=== PATIENT | female | born 1935 | race African-American/Black ===

== ENCOUNTER 2019-06-13 19:46 | Inpatient (IN) | payer MEDICARE, MEDICAID ==
[2019-06-13] MEDS ORDERED: Acetaminophen 325 MG TAB ONE (20:12)
[2019-06-13 20:53] LABS: Troponin I 0.169 ng/mL (< 0.028)
--- NOTE | 2019-06-13 21:06 | PDOC.FPRHP ---
- History of Present Illness Chief Complaint: Fever, Cough History of Present Illness: Patient is a 84 yo female who presents to [facility] as a transfer from [facility]. Originally patient had been transferred to [place] from [facility] after it was noted she had a temp of 103.7F accompanied by non- productive cough and tachypnea. She also had AMS, she is normally conversational at baseline. Upon arrival to [place] ED she had O2 sat of 84% on room air and was placed on supplemental O2. Currently she is requiring 4L O2 with 100% O2 sat. Patient was previously taken to the [place] ED on 06/04/19 with similar symptoms. Patient was seen earlier this week by family members but they did not note the patient to have any symptoms or complaints. [facility] ED Course: Given Rocephin x 1 dose, Vancomycin 15mg/kg x 1 dose, 250 NS bolus, Lasix 20 x 1 dose, Tylenol. Her BP have ranged from systolic 80s to low 100s, diastolic 60s , MAP from 55 to 75. - Allergies/Adverse Reactions Allergies Allergy/AdvReac Type Severity Reaction Status Date / Time No Known Allergies Allergy Verified 06/14/19 03:08 - History PMHx: Advanced dementia, HTN, HLD, GERD, CAD, CKD PSHx: unknown FHx: mother had heart disease, sister & daughter hx of breast cancer Social: smoking hx from age 15 to 80 (unknown amount), no EtOH use - Review of Systems ROS unobtainable: other (per daughter and [facility] records) General: reports: fever/chills ENT: reports: nasal congestion Respiratory: reports: cough, shortness of breath. denies: congestion Gastrointestinal: denies: vomiting, diarrhea Skin: denies: rashes, lesions - Vital signs BP: 98/66 HR: 79 RR: 18 Tmax: 99.8F Pox: 100% on 4L O2 Wt: 68 kg - Physical Exam Constitutional: NAD, well developed -Constitutional: sleeping, easily awakened and oriented to person only HEENT: normocephalic and atraumatic, conjunctiva clear, no scleral icterus, MMM Neck: supple, no JVD Heart: RRR, normal S1/S2, no murmurs/rubs/gallops, pulses present, other (1+ nonpitting bilat LE edema) -Lungs: scattered rhonchi throughout anterior and posterior areas. Abdomen: soft, bowel sounds present, no masses/distention Musculoskeletal: normal structure, normal tone Skin: no rash/lesions, good turgor, no jaundice Heme/Lymphatic: no unusual bruising or bleeding FMR H&P: Results - Labs Result Diagrams: 06/14/19 02:09 06/14/19 02:09 Lab results: B-Natriuretic Peptide 857.5 pg/mL (0-100) H 06/13/19 20:10 - EKG Interpretation EKG: sinus rhythm, no ST changes FMR H&P: A/P - Problem List (1) Sepsis Current Visit: Yes Status: Acute Code(s): A41.9 - SEPSIS, UNSPECIFIED ORGANISM Qualifiers: Sepsis type: sepsis due to unspecified organism Severe sepsis acute organ dysfunction type: acute respiratory failure Acute respiratory failure type: with hypoxia Severe sepsis shock status: unspecified (2) Acute respiratory failure with hypoxia Current Visit: Yes Status: Acute Code(s): J96.01 - ACUTE RESPIRATORY FAILURE WITH HYPOXIA (3) CHF with unknown LVEF Current Visit: Yes Status: Acute Code(s): I50.9 - HEART FAILURE, UNSPECIFIED (4) AMADOU (acute kidney injury) Current Visit: Yes Status: Acute Code(s): N17.9 - ACUTE KIDNEY FAILURE, UNSPECIFIED - Plan Patient is a 84 yo female with fever and tachypnea who is admitted for sepsis workup, CHF exacerbation, and acute hypoxic respiratory failure: #Sepsis, likely secondary to aspiration pna -Rocephin x 1 in ED (06/13), start Vancomycin (06/13) & Zosyn (06/13) -repeat CXR in AM -blood and urine cultures pending (taken at [place] ED) -monitor vitals q4hr, MAP has ranged from 55-75 while in ED, consider central line if MAP sustained below 60 #Acute Hypoxic Respiratory Failure -Duonebs shukri q4hr, prn q2hr #Suspected CHF exacerbation -Echo in AM -Lasix 20 x 1 dose at [place] ED, consider starting Lasix here as clinical condition warrants -BNP 652 -> 857 (baseline unknown) -Troponins 0.071 -> 0.169 -monitor I/Os -balance fluid resuscitation vs overload-has received 250 IV NS so far #AMADOU, mild -Cr 1.21, baseline Cr unknown -CrCl = 37 #Leukocytosis -WBC 11.1 -CBC in AM #HTN -hold home BP meds: Valsartan, Amlodipine, HCTZ, Atenolol #Depression -continue home Citalopram #Dementia -continue home Donepezil Diet: Heart Healthy, low sodium VTE: SCDs, Lovenox 30 Code: DNR only, intubation okay Dispo: Guarded, admitted to inpatient IMCU. Plan to continue IV Abx and await culture results. Repeat CXR planned for AM. Anticipate LOS >2 days. FMR H&P: Upper Level - Pertinent history 84 year old AA female presents from [facility] with a one to two day history of fever and chest congestion. She was seen at [place] ED, diagnosed with PNA and transferred to [facility]. Patient had temp to 103.7F in outside ED. CXR consistent with pulmonary edema. Patient was given lasix 20 mg at outside facility. BP in route fell to SBP 80's. She was given 250 mL of NS which improved BP. Her BP's have been low, but stable since arrival. MAPs have been maintained above 60. Patient unable to provide a lot of history due to advanced dementia, but she reports feeling better. Family saw her a few days prior and reports she was doing well. She is conversational at baseline. She reportedly has no difficulties with eating and is on a regular diet with no restrictions. Patient has not had PNA previously. Uncertain whether she is up to date with vaccines. - Pertinent findings General: Alert. Resting comfortably in bed. Awakens to answer questions. No acute distress. HEENT: EOMI. MMM. Card: RRR, No appreciable murmur. Resp: Rhonchi throughout anteriorly and posteriorly. No acute respiratory distress. Abdomen: Soft, non-tender. Ext: Trace lower extremity edema. No cyanosis Skin: Warm and dry. - Plan Date/Time: 06/13/192105 IGisell, have evaluated this patient and agree with findings/plan as outlined by recruitment intern resident. Pertinent changes/additions are listed here. Acute hypoxic respiratory failure 2/2 PNA and CHF exacerbation - Requiring 4L O2 - Consider ABG, patient has been on 4L O2 - Broad spectrum antibiotics to include Vanc (06/13) and Zosyn (06/13); possibility of aspiration - Duonebs SHUKRI q4h and PRN q2h Sepsis 2/2 PNA - CXR concerning for pulmonary edema, will repeat in AM - Broad spectrum antibiotics; Vanc and Zosyn. Possibility of aspiration. - Duoneb treatments as above - BP with MAP's above 65, although dipping down at times below 65. Had extensive discussion with family regarding possibility of central line for pressors if needed. Patient is DNR, but not DNI. They are in agreement with central line if necessary. At this time, patient has not been adequately fluid resuscitated. Given concern for pulmonary edema, will have to balance fluid resuscitation with fluid overload. Discussed this with family. - Continue to monitor respiratory status and wean O2 as tolerated with goal O2 > 92%. - Blood and urine cultures pending - Consider cortisol level if BP does not respond to fluids Pulmonary edema with concern for CHF exacerbation - BNP 600's --> 800's after very mild fluid resuscitation - Balance adequate fluid resuscitation for sepsis with fluid overload from possible CHF - Echo pending - No formal diagnosis of CHF in patient's history - Lasix 20 mg given at outside facility; will give PRN as needed - Daily weights - Strict I&O's Indeterminate troponins, likely 2/2 NSTEMI type II (demand ischemia) - Likely demand 2/2 PNA/CHF - Continue to trend HTN - Hold home BP meds HLD - Continue home meds GERD - Aware CAD - Continue home medications CKD - Uncertain of baseline - Cr 1.2 today, continue to monitor Advanced Dementia - Continue home medications - A&O x1 at baseline DVT PPX: Lovenox Code Status: DNR (not DNI, ok with intubation) Dispo: Admit to IMCU. Anticipate LOS >48 hours. Addendum - Attending - Attending Attestation Date/Time: 06/14/19 0560 I personally evaluated the patient and discussed the management with Dr. Rojas. I agree with the History, Examination, Assessment and Plan documented above with any addition or exceptions noted below. Pt was sent to the ER for temp 103 and cough from [place] in [place]. She has been mildly hypotensive. CXR consistent with pneumonia and bnp also elevated. She appears to also have a chf exac. Will get echo. We have to balance her need for fluids for sepsis and her need for diuresis for the chf. She has gotten small fluid boluses and also some lasix. Will admit to the IMCU for close monitoring. Treat with broad spectrum antibiotics. Culture pt.
[2019-06-14] MEDS ORDERED: Ondansetron PF 4 MG/2 ML Vial IVP PRN ×2 (00:01→00:36)
[2019-06-14] MEDS ORDERED: Ondansetron ODT 4 MG TAB SL PRN (00:01)
[2019-06-14 00:14] LABS: Troponin I 0.258 ng/mL (< 0.028)
[2019-06-14] MEDS ORDERED: Ondansetron ODT 4 MG TAB PO PRN (00:36)
[2019-06-14] MEDS ORDERED: Acetaminophen 650 MG Suppository PR PRN (00:36)
[2019-06-14] MEDS ORDERED: Calcium Carbonate 500 MG ChewTAB PO PRN (00:36)
[2019-06-14] MEDS ORDERED: Senokot S 8.6-50 MG TAB PO PRN (00:36)
[2019-06-14] MEDS ORDERED: cefTRIAXone\\ROCEPHIN 1 GM in Sodium Chloride 0.9% 100 ML IVPB SCH (01:00)
[2019-06-14] MEDS ORDERED: Piperacillin/Tazobactam 4.5 GM in Sodium Chloride 0.9% 100 ML IVPB SCH (02:00)
[2019-06-14 02:17] LABS: #Lymphocytes 0.9 thou/uL (1.20-3.40); #Monocytes 0.8 thou/uL (0.11-0.59); #Neutrophils 6.1 thou/uL (1.40-6.50); %Basophils 0.5 % (0.0-1.0); %Eosinophils 0.5 % (0.0-10.0); %Lymphocytes 11.1 % (21.0-51.0); %Monocytes 10.6 % (0.0-10.0); %Neutrophils 77.3 % (42.0-75.0); Hemoglobin 10.6 g/dL (12.0-16.0); Mean Corpuscular HGB CONC 32.3 g/dL (32.0-36.0); Mean Corpuscular Hemoglobin 30.3 pg (27.0-31.0); Mean Corpuscular Volume 93.7 fL (78.0-98.0); Mean Platelet Volume 8.2 fL (7.4-10.4); Platelet Count 273 thou/uL (130-400); RBC Distribution Width 12.5 % (11.5-14.5); Red Blood Cell (RBC) Count 3.49 mill/uL (4.20-5.40); White Blood Cell (WBC) Count 7.9 thou/uL (4.8-10.8)
[2019-06-14] MEDS ORDERED: Milk Of Magnesia 30 ML UDCUP PO PRN (02:40)
[2019-06-14 02:41] LABS: Troponin I 0.233 ng/mL (< 0.028)
[2019-06-14 02:46] LABS: ALT (SGPT) 12 U/L (8-55); AST (SGOT) 17 U/L (5-34); Albumin 3.4 g/dL (3.4-4.8); Alkaline Phosphatase 68 U/L (40-110); Anion Gap 13 mmol/L (10-20); BUN (Urea Nitrogen) 19 mg/dL (9.8-20.1); Bilirubin, Total 0.5 mg/dL (0.2-1.2); Calc. Creatinine Clearance 0 mL/min (70-130); Calcium 8.5 mg/dL (7.8-10.44); Carbon Dioxide 26 mmol/L (23-31); Chloride 100 mmol/L (98-107); Estimated GFR-MDRD 51; Globulin 2.7 g/dL (2.4-3.5); Glucose 119 mg/dL (83-110); Potassium 3.8 mmol/L (3.5-5.1); Protein, Total 6.1 g/dL (6.0-8.3); Sodium 135 mmol/L (136-145)
[2019-06-14] MEDS ORDERED: hydrALAZINE 20 MG/ML VIAL SLOW IVP PRN (04:20)
[2019-06-14] MEDS ORDERED: Furosemide 20 MG/2 ML VIAL SLOW IVP SCH (04:30)
[2019-06-14 05:16] LABS: Ferritin 116.19 ng/mL (10-291)
[2019-06-14] MEDS: Acetaminophen 325 MG TAB PO PRN (05:32)
[2019-06-14] MEDS: Piperacillin/Tazobactam 3.375 GM in Sodium Chloride 0.9% 100 ML IVPB SCH ×4 (05:32→23:57)
--- NOTE | 2019-06-14 06:15 | PDOC.FM ---
- Subjective Subjective: No overnight events. Slept well. No complaints. Denies shortness of breath, chest pain, fevers/chills. - Objective MAR Reviewed: Yes Vital Signs & Weight: Vital Signs (12 hours) Temp Pulse Resp Pulse Ox 06/14/19 05:45 100.8 F H 06/14/19 03:51 98.1 F 06/14/19 02:18 74 14 100 06/14/19 00:20 98 06/14/19 00:02 99.2 F Weight Weight 61.3 kg Most Recent Monitor Data Heart Rate from ECG 79 NIBP 183/81 NIBP BP-Mean 115 Respiration from ECG 22 SpO2 93 I&O: 06/12/19 06/13/19 06/14/19 06:59 06:59 06:59 Intake Total 200 Balance 200 Result Diagrams: 06/14/19 02:09 06/14/19 02:09 Phys Exam - Physical Examination Constitutional: NAD HEENT: moist MMs Neck: supple crackles in Left lower lobe otherwise CTA Cardiovascular: RRR, no significant murmur Gastrointestinal: soft, non-tender, positive bowel sounds Musculoskeletal: no edema, pulses present Neurological: moves all 4 limbs Skin: normal turgor Dx/Plan - Plan Plan: 84 yo female admitted for sepsis 2/2 pneumonia and acute hypoxic respiratory failure 2/2 pna and likely CHF exacerbation Sepsis, likely 2/2 to aspiration pna - Fever, leukocytosis - Continue Vanc, Zosyn - Repeat CXR pending. - Blood and urine cultures pending - Hypotension improved wit volume resuscitation Acute Hypoxic Respiratory Failure likely 2/2 PNA and CHF exacerbation - Duonebs jonathon q4hr, prn q2hr - Manage as above Suspected CHF exacerbation - Elevated BNP - Echo today, no diagnosis of CHF - Continue Lasix 20mg daily - Troponins 0.071, 0.169, 0.258, 0.233 - Strict I&Os AMADOU - Cr 1.22, unknown basline - Continue to monitor Leukocytosis - Likely 2/2 infection HTN - Resume Valsartan, Atenolol - Holding HCTZ, Amlodipine Depression - continue home Citalopram Dementia - continue home Donepezil Diet: Heart Healthy, low sodium VTE: Lovenox 30 Code: DNR only, intubation okay Addendum - Attending - Attending Attestation Date/Time: 06/14/19 0719 I personally evaluated the patient and discussed the management with Dr. Gutierrez. I agree with the History, Examination, Assessment and Plan documented above with any addition or exceptions noted below. The patient's blood pressure is elevated this morning which is an improvement. Will restart one home bp agent and monitor. Continue antibiotics. Cultures pending.
[2019-06-14] MEDS ORDERED: Furosemide 20 MG TAB PO SCH (09:00)
[2019-06-14] MEDS ORDERED: Amlodipine 5 MG TAB PO SCH (09:00)
[2019-06-14] MEDS: Atenolol 50 MG TAB PO SCH (09:50)
[2019-06-14] MEDS: Valsartan 80 MG TAB PO SCH (09:50)
[2019-06-14] MEDS: Aspirin Chewable 81 MG TAB PO SCH (09:50)
[2019-06-14] MEDS: Citalopram 20 MG TAB PO SCH (09:52)
[2019-06-14] MEDS: Gabapentin 300 MG CAP PO SCH ×3 (09:52→20:54)
[2019-06-14] MEDS: Enoxaparin Sodium 30 MG/0.3 ML SYRINGE SC SCH (09:52)
--- NOTE | 2019-06-14 12:32 | RAD ---
PORTABLE AP CHEST: Date: 06/14/19 HISTORY: Fever, suspected aspiration pneumonia vs. CHF. COMPARISON: 06/13/19. FINDINGS: The cardiac silhouette is magnified by projection, but does appear mildly enlarged. Pulmonary vascula r congestion has improved. There has also been interval improvement in the interstitial densities not ed on the prior exam, as well as improvement in hazy bibasilar densities. Osteopenia is present. No o ther interval change. IMPRESSION: 1. Interval improvement in interstitial opacities and pulmonary vascular congestion. These findings may be related to interval improvement in CHF and pulmonary edema. 2. Osteopenia. POS: OFF
--- NOTE | 2019-06-14 18:09 | CON ---
DATE OF CONSULTATION: 06/14/2019 HISTORY OF PRESENT ILLNESS: Ms. Zamora is an 84-year-old female, who is admitted for fever, cough, and shortness of breath. Chest radiograph showed diffuse infiltrates. Repeat chest radiograph this morning shows dramatic improvement in these infiltrates. She says she feels much better. PAST MEDICAL HISTORY: Remarkable for, 1. Dementia. 2. Hypertension. 3. Reflux disease. 4. Coronary artery disease. 5. Chronic kidney disease. SOCIAL HISTORY: She is currently not smoking or drinking. She is a former smoker. FAMILY HISTORY: There is a family history of vascular disease and cancer. No history of lung disease in early age. ALLERGIES: SHE HAS NO REPORTED ALLERGIES. REVIEW OF SYSTEMS: Ten points negative. PHYSICAL EXAMINATION: VITAL SIGNS: Heart rate is 84, respiratory rate is 28, oximetry is 94, blood pressure 136/87. GENERAL: She is in no distress. She is lying in upright 15 degrees in bed. HEENT: Pupils are equal. Sclerae are anicteric. Her extraocular movements are full. NECK: Supple. No lymphadenopathy. LUNGS: Clear. HEART: Regular rhythm. No S3. No murmurs heard. ABDOMEN: Soft and nontender. EXTREMITIES: Without clubbing, cyanosis, or edema. NEURO: Nonfocal. LABORATORY DATA: White count is 7.9, hemoglobin 10.6, platelets 273. Sodium 135, potassium 3.8, chloride 100, bicarb 26, BUN 19, creatinine 1.22. IMPRESSION: 1. Congestive heart failure. 2. Febrile illness. Radiograph is not consistent with pneumonia. Flu swab was negative. Antibiotics can be simplified. I do not see any blood cultures that are pending. I doubt this is an MRSA infectious process. Given her advanced age, I consider stopping her vancomycin. An echocardiogram was ordered. We will follow. Job ID: [id number] [facility]
[2019-06-14] MEDS: Vancomycin HCl 1 GM in Premix Bag 1 BAG IVPB SCH (20:53)
[2019-06-14] MEDS: Donepezil HCl 5 MG TAB PO SCH (20:54)
--- NOTE | 2019-06-15 03:13 | PDOC.EVN ---
Event Note - Event Note Event Note: Patient seen at 0200. During chart review it was noted that at 2356 patient had fever of 103.1F. Patient has had fever above 100.4F throughout night. Has not received any Tylenol since 0530 on 06/14/19. Upon exam of patient she is sleeping with occasional cough. Has scattered rhonchi throughout anterior and posterior sites. Due to continued mixed picture of CHF exacerbation vs pneumonia , and due to persistent fevering despite broad antibiotic coverage will plan to redraw blood and urine cultures. Previous cultures drawn at outside ED are still pending.
[2019-06-15] MEDS: Piperacillin/Tazobactam 3.375 GM in Sodium Chloride 0.9% 100 ML IVPB SCH ×4 (05:40→23:56)
[2019-06-15 05:46] LABS: ALT (SGPT) 12 U/L (8-55); AST (SGOT) 19 U/L (5-34); Albumin 3.3 g/dL (3.4-4.8); Alkaline Phosphatase 55 U/L (40-110); Anion Gap 14 mmol/L (10-20); BUN (Urea Nitrogen) 22 mg/dL (9.8-20.1); Bilirubin, Total 0.7 mg/dL (0.2-1.2); Calc. Creatinine Clearance 29 mL/min (70-130); Calcium 8.3 mg/dL (7.8-10.44); Carbon Dioxide 28 mmol/L (23-31); Chloride 97 mmol/L (98-107); Estimated GFR-MDRD 44; Globulin 2.7 g/dL (2.4-3.5); Glucose 96 mg/dL (83-110); Potassium 3.5 mmol/L (3.5-5.1); Sodium 135 mmol/L (136-145)
--- NOTE | 2019-06-15 06:10 | PDOC.FM ---
- Subjective Subjective: Overnight, the patient fevered to a Tmax of 103F. Blood and urine cx were redrawn. Patient given a dose of tylenol which resolved fever. Per nursing, patient was wrapped up in multiple blankets at the time of the fever measurement. This morning, the patient is resting comfortably in bed. She denies any chest pain or discomfort. SHe denies any SOB. She denies any fever or chills. - Objective Vital Signs & Weight: Vital Signs (12 hours) Temp Resp Pulse Ox 06/15/19 05:00 20 06/15/19 03:42 98.6 F 06/15/19 01:21 100.2 F H 06/14/19 23:56 103.1 F H 06/14/19 20:00 22 H 99 06/14/19 19:26 100.2 F H Weight Weight 60.9 kg Most Recent Monitor Data Heart Rate from ECG 66 NIBP 129/61 NIBP BP-Mean 83 Respiration from ECG 15 SpO2 100 I&O: 06/13/19 06/14/19 06/15/19 06:59 06:59 06:59 Intake Total 200 1330 Output Total 450 Balance 200 880 Result Diagrams: 06/15/19 05:07 06/15/19 05:07 Phys Exam - Physical Examination Constitutional: NAD HEENT: PERRLA, moist MMs, sclera anicteric Neck: supple, full ROM rhonchi heard in right ant chest Cardiovascular: RRR, no significant murmur, no rub Gastrointestinal: soft, non-tender, no distention, positive bowel sounds trace edema b/l Neurological: non-focal, moves all 4 limbs Deviation from normal: axox1 Skin: no rash, normal turgor, cap refill <2 seconds Dx/Plan (1) AMADOU (acute kidney injury) Code(s): N17.9 - ACUTE KIDNEY FAILURE, UNSPECIFIED Status: Acute (2) Acute respiratory failure with hypoxia Code(s): J96.01 - ACUTE RESPIRATORY FAILURE WITH HYPOXIA Status: Acute (3) CHF with unknown LVEF Code(s): I50.9 - HEART FAILURE, UNSPECIFIED Status: Acute (4) Sepsis Code(s): A41.9 - SEPSIS, UNSPECIFIED ORGANISM Status: Acute Qualifiers: Sepsis type: sepsis due to unspecified organism Severe sepsis acute organ dysfunction type: acute respiratory failure Acute respiratory failure type: with hypoxia Severe sepsis shock status: unspecified - Plan Plan: 84 yo female admitted for sepsis 2/2 pneumonia and acute hypoxic respiratory failure 2/2 pna and likely CHF exacerbation Sepsis, likely 2/2 to aspiration PNA On admission - fever, leukocytosis. CXR showing infiltrates. Procal 1.27. - Continue Vanc, Zosyn. Will repeat procal this AM. - Febrile overnight - will continue to monitor. Tylenol PRN. - Blood and urine cultures pending - will contact outside ED to check on their status. Repeat blood/urine cx drawn overnight. - Hypotension improved with volume resuscitation Acute Hypoxic Respiratory Failure likely 2/2 PNA and CHF exacerbation - Duonebs jonathon q4hr, prn q2hr - Manage as above Suspected CHF exacerbation Elevated BNP. Troponin downtrended. CXR showing fluid overload. - Echo EF 55-60%, LVH, restrictive diastolic dysfunction, elevated pulm artery pressure - Continue Lasix 20mg daily PO - Strict I&Os AMADOU - Cr 1.22 -> 1.39, unknown baseline. Crcl of 29. - Continue to monitor Leukocytosis - Likely 2/2 infection HTN - Resume Valsartan, Atenolol - Holding HCTZ, Amlodipine Depression - continue home Citalopram Dementia - continue home Donepezil Diet: Heart Healthy, low sodium VTE: Lovenox 30 Code: DNR only, intubation okay Case discussed with Dr. Damon Addendum - Attending - Attending Attestation Date/Time: 06/15/19 1106 I personally evaluated the patient and discussed the management with Dr. Simon I agree with the History, Examination, Assessment and Plan documented above with any addition or exceptions noted below - Patient denies any complaints. Tm 103.1 Tn 98.0 P62 BP129/57 100% A/P: 1) Febrile illness- Vanc d/c'd; continue zosyn. Blood cultures negative to date from [place] [facility]. Repeat set drawn today - pending. 2) CHFpEF - continue lasix. Transfer to medical today.
[2019-06-15 06:15] LABS: Band 4 % (5-11); Hemoglobin 10.3 g/dL (12.0-16.0); Lymphocytes 19 % (21-51); MDiff Complete? YES; Mean Corpuscular Hemoglobin 29.4 pg (27.0-31.0); Mean Platelet Volume 8.2 fL (7.4-10.4); Monocytes 14 % (0-10); Neutrophil 63 % (42-75); Platelet Count 267 thou/uL (130-400); Platelet Morphology Comment Appears Adequate; RBC Distribution Width 12.4 % (11.5-14.5); Red Blood Cell (RBC) Count 3.49 mill/uL (4.20-5.40); White Blood Cell (WBC) Count 5.9 thou/uL (4.8-10.8)
[2019-06-15] MEDS ORDERED: Ferrous Sulfate 325 MG TAB PO SCH (09:00)
[2019-06-15] MEDS: Aspirin Chewable 81 MG TAB PO SCH (09:24)
[2019-06-15] MEDS: Gabapentin 300 MG CAP PO SCH ×2 (09:26→15:57)
[2019-06-15] MEDS: Citalopram 20 MG TAB PO SCH (09:26)
[2019-06-15] MEDS: Furosemide 20 MG TAB PO SCH ×2 (09:26→09:30)
[2019-06-15] MEDS: Atenolol 50 MG TAB PO SCH ×2 (09:27→16:13)
[2019-06-15] MEDS: Valsartan 80 MG TAB PO SCH ×2 (09:27→16:13)
[2019-06-15] MEDS: Enoxaparin Sodium 30 MG/0.3 ML SYRINGE SC SCH (09:28)
--- NOTE | 2019-06-15 09:43 | PRG ---
DATE OF SERVICE: 06/15/2019 SUBJECTIVE: The patient had a fever last night, which caused her to decompensate somewhat, but she feels better this morning. OBJECTIVE: VITAL SIGNS: T-max is 103.1, T-current 98.0, pulse 60, blood pressure 129/57, and O2 saturation 99%. GENERAL: She appears in no distress. HEENT: Unremarkable. NECK: No adenopathy or JVD. CHEST: Clear to auscultation. CARDIAC: S1 and S2. Regular. ABDOMEN: Soft. EXTREMITIES: No edema. LABORATORY DATA: White blood cell count 5.9, hematocrit 32.1, and platelet count 267 with 63% neutrophils and 4% bands. Sodium 135, potassium 3.5, chloride 97, CO2 of 28, BUN 22, creatinine 1.4, and glucose 96. ASSESSMENT: 1. Febrile illness. 2. Congestive heart failure. PLAN: The patient is continuing supportive care with IV antibiotics, nebulization treatments, as well as treatment for heart failure. If this is a viral illness, then we will just have to wait it out. She is probably strong enough to transfer up to the medical floor. Job ID: [id number]
[2019-06-15] MEDS: Acetaminophen 325 MG TAB PO PRN (15:57)
[2019-06-15 20:39] LABS: Vancomycin, Trough 13.1 ug/mL
[2019-06-15] MEDS: Donepezil HCl 5 MG TAB PO SCH (20:48)
[2019-06-15] MEDS: Gabapentin 100 MG CAP PO SCH (20:48)
[2019-06-15] MEDS: Vancomycin HCl 1 GM in Premix Bag 1 BAG IVPB SCH (21:01)
[2019-06-16] MEDS: Piperacillin/Tazobactam 3.375 GM in Sodium Chloride 0.9% 100 ML IVPB SCH ×2 (05:28→12:00)
[2019-06-16 05:46] LABS: #Eosinphils 0.3 thou/uL (0.0-0.7); #Lymphocytes 1.1 thou/uL (1.20-3.40); #Monocytes 1.1 thou/uL (0.11-0.59); #Neutrophils 4.6 thou/uL (1.40-6.50); %Basophils 0.1 % (0.0-1.0); %Eosinophils 3.7 % (0.0-10.0); %Monocytes 14.8 % (0.0-10.0); %Neutrophils 65.5 % (42.0-75.0); Hemoglobin 9.8 g/dL (12.0-16.0); Mean Corpuscular HGB CONC 31.9 g/dL (32.0-36.0); Mean Corpuscular Hemoglobin 29.4 pg (27.0-31.0); Mean Corpuscular Volume 92.2 fL (78.0-98.0); Mean Platelet Volume 8.7 fL (7.4-10.4); Platelet Count 259 thou/uL (130-400); RBC Distribution Width 12.4 % (11.5-14.5); Red Blood Cell (RBC) Count 3.35 mill/uL (4.20-5.40); White Blood Cell (WBC) Count 7.1 thou/uL (4.8-10.8)
[2019-06-16 06:05] LABS: ALT (SGPT) 12 U/L (8-55); AST (SGOT) 22 U/L (5-34); Albumin 3.2 g/dL (3.4-4.8); Alkaline Phosphatase 51 U/L (40-110); Anion Gap 13 mmol/L (10-20); BUN (Urea Nitrogen) 19 mg/dL (9.8-20.1); Bilirubin, Total 0.6 mg/dL (0.2-1.2); Calc. Creatinine Clearance 32 mL/min (70-130); Calcium 8.4 mg/dL (7.8-10.44); Carbon Dioxide 29 mmol/L (23-31); Chloride 96 mmol/L (98-107); Estimated GFR-MDRD 50; Globulin 2.8 g/dL (2.4-3.5); Glucose 91 mg/dL (83-110); Potassium 3.2 mmol/L (3.5-5.1); Sodium 135 mmol/L (136-145)
[2019-06-16] MEDS ORDERED: Potassium Chloride 20 MEQ TAB PO SCH (06:45)
--- NOTE | 2019-06-16 06:48 | PDOC.FM ---
- Subjective Subjective: NAEO. Patient resting comfortably in bed. Patient states she feels good today. She ate breakfast, tolerated well. Patient states she is much better. - Objective MAR Reviewed: Yes Vital Signs & Weight: Vital Signs (12 hours) Temp Pulse Resp BP Pulse Ox 06/16/19 03:18 99.0 F 78 16 156/69 H 100 06/16/19 00:45 100 F H 77 18 159/72 H 100 06/15/19 23:53 98.4 F 06/15/19 23:05 74 18 100 06/15/19 19:40 100 06/15/19 19:19 98.6 F Weight Weight 60.9 kg Most Recent Monitor Data Heart Rate from ECG 86 NIBP 155/73 NIBP BP-Mean 100 Respiration from ECG 26 SpO2 99 I&O: 06/14/19 06/15/19 06/16/19 06:59 06:59 06:59 Intake Total 200 1330 1260 Output Total 450 1180 Balance 200 880 80 Result Diagrams: 06/16/19 05:15 06/16/19 05:15 Phys Exam - Physical Examination Constitutional: NAD HEENT: PERRLA, moist MMs Neck: supple, full ROM rhonchi present b/l- improved from yesterday; minimal crackles Cardiovascular: RRR, no significant murmur Gastrointestinal: soft, non-tender, no distention, positive bowel sounds Musculoskeletal: no edema, pulses present Neurological: non-focal, moves all 4 limbs Deviation from normal: axox1 Skin: no rash, normal turgor, cap refill <2 seconds Dx/Plan (1) AMADOU (acute kidney injury) Code(s): N17.9 - ACUTE KIDNEY FAILURE, UNSPECIFIED Status: Acute (2) Acute respiratory failure with hypoxia Code(s): J96.01 - ACUTE RESPIRATORY FAILURE WITH HYPOXIA Status: Acute (3) CHF with unknown LVEF Code(s): I50.9 - HEART FAILURE, UNSPECIFIED Status: Acute (4) Sepsis Code(s): A41.9 - SEPSIS, UNSPECIFIED ORGANISM Status: Acute Qualifiers: Sepsis type: sepsis due to unspecified organism Severe sepsis acute organ dysfunction type: acute respiratory failure Acute respiratory failure type: with hypoxia Severe sepsis shock status: unspecified - Plan Plan: 84 yo female admitted for sepsis 2/2 pneumonia and acute hypoxic respiratory failure 2/2 pna and likely CHF exacerbation Sepsis, likely 2/2 to aspiration PNA On admission - fever, leukocytosis. CXR showing infiltrates. Procal 1.27 -> 1.10. - Continue Vanc, Zosyn. Will transition to PO today. - Tylenol PRN - afebrile 24 hrs. - Blood cx: NGTD; Urine cx: alpha hemolytic strep - likley contaminant. Ucx here NGTD. - Hypotension improved with volume resuscitation Acute Hypoxic Respiratory Failure likely 2/2 PNA and CHF exacerbation - Duonebs jonathon q4hr, prn q2hr - Manage as above Suspected CHF exacerbation Elevated BNP. Troponin downtrended. CXR showing fluid overload. - Echo EF 55-60%, LVH, restrictive diastolic dysfunction, elevated pulm artery pressure - Continue Lasix 20mg daily PO - Strict I&Os AMADOU - Cr 1.22 -> 1.39 -> 1.24, unknown baseline. - Continue to monitor Leukocytosis - Likely 2/2 infection HTN - Resume Valsartan, Atenolol - Holding HCTZ, Amlodipine Depression - continue home Citalopram Dementia - continue home Donepezil Diet: Heart Healthy, low sodium VTE: Lovenox 30 Code: DNR only, intubation okay Case discussed with Dr. Damon Addendum - Attending - Attending Attestation Date/Time: 06/16/19 5013 I personally evaluated the patient and discussed the management with Dr. Simon I agree with the History, Examination, Assessment and Plan documented above with any addition or exceptions noted below - Patient without complaints. Afebrile VSS. A/P: 1) CAP- afebrile >36 hours; change to po antibiotics. 2) HFpEF exacerbation - diuresed well and lungs more clear. Plan to d/c back to NH today.
[2019-06-16] MEDS ORDERED: Ferrous Sulfate 325 MG TAB PO SCH (08:00)
[2019-06-16] MEDS ORDERED: Magnesium 2 GM/50 ML 2 GM in Premix Bag 1 BAG IVPB SCH (08:45)
[2019-06-16] MEDS ORDERED: Furosemide 20 MG TAB PO SCH (09:00)
[2019-06-16] MEDS: Aspirin Chewable 81 MG TAB PO SCH (09:21)
[2019-06-16] MEDS: Valsartan 80 MG TAB PO SCH (09:22)
[2019-06-16] MEDS: Atenolol 50 MG TAB PO SCH (09:22)
[2019-06-16] MEDS: Gabapentin 100 MG CAP PO SCH ×2 (09:23→15:54)
[2019-06-16] MEDS: Citalopram 20 MG TAB PO SCH (09:23)
--- NOTE | 2019-06-16 10:32 | PRG ---
DATE OF SERVICE: 06/16/2019 SUBJECTIVE: The patient is about the same. She seems somewhat demented when I converse with her. OBJECTIVE: VITAL SIGNS: Temperature is 99.9, pulse 78, respirations 14, O2 saturation 100%, and blood pressure 144/61. HEENT: Unremarkable. NECK: No adenopathy or JVD. LUNGS: Coarse rhonchi. CARDIAC: S1 and S2, regular. ABDOMEN: Soft. EXTREMITIES: No edema. ASSESSMENT: 1. Congestive heart failure with exacerbation. 2. Febrile illness. PLAN: She is continuing current care with antibiotics, diuretics. No further recommendations at this time. Job ID: [id number]
[2019-06-16] MEDS: Enoxaparin Sodium 30 MG/0.3 ML SYRINGE SC SCH (10:34)
[2019-06-16 11:52] VITALS: BP 98/49; TEMP 97.3
[2019-06-16 15:11] LABS: Folate,Hemolysate 366.3 ng/mL (Not Estab.); Hematocrit 31.9 % (34.0-46.6); RBC Folate Test Component 1148 ng/mL (>498)
--- NOTE | 2019-06-18 16:21 | DIS ---
DATE OF ADMISSION: 06/14/2019 DATE OF DISCHARGE: 06/16/2019 RESIDENT: Kaela Simon MD ADMITTING ATTENDING: May Aguila MD. CONSULTS: Pulmonology: Dr. Serna. DISCHARGE MEDICATIONS: . DISCONTINUED MEDICATIONS: . PROCEDURES: None. PRIMARY DIAGNOSES: 1. Sepsis likely secondary to aspiration pneumonia. 2. Acute hypoxic respiratory failure. 3. Suspected congestive heart failure exacerbation. 4. Acute kidney injury. SECONDARY DIAGNOSES: 1. Leukocytosis. 2. Hypertension. 3. Depression. 4. Dementia. HISTORY OF PRESENT ILLNESS/HOSPITAL COURSE: The patient is an 84-year-old female presenting to [place] [facility] as a transfer from the [facility]. Originally, the patient had been transferred from the [facility] after it was noted that she had a temperature of 103.7 degrees Fahrenheit, accompanied by nonproductive cough and tachypnea. She also had altered mental status, which she has normally . Upon arrival, her O2 sats were 84% on room air and was placed on supplemental oxygen. The patient was seen earlier in the week by family members, but did not note the patient had any of these symptoms or complaints. The patient was given a flu shot at the [facility] earlier that week. Upon admission to [facility], chest x-ray showed infiltrates. Procalcitonin was trended. She was started on vancomycin and Zosyn. Tylenol for fevers. Blood culture showed no growth. Urine culture did show alpha hemolytic strep, likely contaminant. She was given DuoNeb q.4 for respiratory failure. Echo showed an EF of 55% to 60% with left ventricular hypertrophy and restrictive diastolic dysfunction as well as elevated pulmonary artery pressure. She was given Lasix 20 mg daily p.o., with strict I's and O's. Her creatinine remained stable. Throughout her hospital stay, she stayed pleasantly demented. We also trended her troponin as well as her BNP. Transitioned antibiotics from vancomycin and Zosyn to Omnicef. She will need 5 days following discharge from the hospital. DISPOSITION: Stable. DISCHARGE INSTRUCTIONS: 1. Location: [facility], [place]. 2. Diet: Heart healthy. 3. Activity: Ad michelle with assistance and fall precautions. 4. Follow up with PCP, Dr. Payne at [facility]. Job ID: [id number]
== END 2019-06-16 16:30 | DRG 871 ==
LOC: ERS 19:46 → IMCU/EMU 06-14 00:09 → SURG A 06-16 00:47
PROVIDERS: ADMIT Family Medicine; ATTEND Family Medicine
DX: A41.9 Sepsis, unspecified organism (principal); J96.01 Acute respiratory failure with hypoxia; J69.0 Pneumonitis due to inhalation of food and vomit; F32.9 Major depressive disorder, single episode, unspecified; Z66 Do not resuscitate; I50.31 Acute diastolic (congestive) heart failure; I13.0 Hypertensive heart and chronic kidney disease with heart failure and stage 1 through stage 4 chronic kidney disease, or unspecified chronic kidney disease; N17.9 Acute kidney failure, unspecified; F03.90 Unspecified dementia, unspecified severity, without behavioral disturbance, psychotic disturbance, mood disturbance, and anxiety; E78.5 Hyperlipidemia, unspecified; K21.9 Gastro-esophageal reflux disease without esophagitis; I25.10 Atherosclerotic heart disease of native coronary artery without angina pectoris; N18.9 Chronic kidney disease, unspecified; R65.20 Severe sepsis without septic shock; Z87.891 Personal history of nicotine dependence
CPT/HCPCS: 36415; 71045; 80053; 80202; 82607; 82728; 82747; 83540; 83550; 83735; 83880; 84145; 84484; 85025; 87040; 87086; 93005; 93306; 94640; 94760; J0360; J0696; J1650; J1940; J2543; J3370; J3475; J3490; J7620